=== PATIENT | male | born 1970 | race Caucasian/White ===

== ENCOUNTER 2018-06-01 07:09 | Emergency (ER) | payer OTHER ==
[~2018-06-01] VITALS: Ht 188 cm; Wt 90.7 kg
[~2018-06-01 07:09] MED LIST: AMOX500 PO; CYCL10 PO; HYDACE5 PO; IBUP600 PO; LORA1 PO; NEOCOLOTSU OT; Norco 5-325 Ta1 EACH PO; OXYACE7.5T PO; RXLORA1 PO; RXOXYACE PO
[2018-06-01] MEDS ORDERED: IBUP400 PO (07:59)
== END 2018-06-01 08:59 | disposition home or self-care (01) ==
LOC: ER 07:09
DX: S19.9XXA Unspecified injury of neck, initial encounter (principal); M79.89 Other specified soft tissue disorders; F17.200 Nicotine dependence, unspecified, uncomplicated; Y04.2XXA Assault by strike against or bumped into by another person, initial encounter
CPT/HCPCS: 29125; 73110; 73130; 99283-25

== ENCOUNTER 2019-11-06 00:51 | Emergency (ER) | payer OTHER ==
[~2019-11-06] VITALS: Ht 188 cm; Wt 90.7 kg
[~2019-11-06 00:51] MED LIST changes: +IBUP400 PO
[2019-11-06 03:04] LABS: Source, Urine Clean Catch
[2019-11-06 03:06] LABS: Bilirubin, Urine Neg (Neg); Blood, Urine 5+ (Neg); Glucose Qualitative, Urine Neg (Neg); Ketones, Urine Neg (Neg); Leukocyte Esterase, Urine 1+ (Neg); Nitrite, Urine Neg (Neg); Protein, Urine Neg (Neg); Specific Gravity, Urine 1.025 (1.003-1.022); Urobilinogen, Urine 1+ (Normal)
[2019-11-06 03:20] LABS: Appearance, Urine Hazy (Clear); Color, Urine Yellow (P-Yellow)
[2019-11-06 03:21] LABS: Amorphous Light (0-Heavy); Bacteria Few /hpf; Calcium Oxalate Crystals Mod /hpf; Mucus Light (0-Heavy); Red Blood Cells, Urine 25-50 /hpf (0-2); Squamous Epithelial Cells Few /hpf (Few); White Blood Cells, Urine 0-2 /hpf (0-5)
== END 2019-11-06 02:37 | disposition left against medical advice (07) ==
LOC: ER 00:51
PROVIDERS: Emergency Medicine
DX: Z53.21 Procedure and treatment not carried out due to patient leaving prior to being seen by health care provider (principal)
CPT/HCPCS: 81001; 87086

== ENCOUNTER 2022-01-27 01:39 | Observation (INO) | payer MEDICARE, OTHER ==
[~2022-01-27] VITALS: Ht 188 cm; Wt 102.5 kg
[2022-01-27 02:41] LABS: BASOPHILS ABSOLUTE AUTO 0.04 K/mm3 (0.00-0.23); BASOPHILS PERCENT AUTO 0 % (0-2); EOSINOPHILS ABSOLUTE AUTO 0.19 K/mm3 (0.00-0.68); EOSINOPHILS PERCENT AUTO 2 % (0-6); Hematocrit 43.2 % (37.0-53.0); Hemoglobin 14.5 g/dL (13.5-17.5); IMMATURE GRAN ABSOLUTE AUTO 0.03 K/mm3 (0.00-0.10); IMMATURE GRAN PERCENT AUTO 0 % (0-1); LYMPHOCYTES ABSOLUTE AUTO 2.19 K/mm3 (0.84-5.20); LYMPHOCYTES PERCENT AUTO 18 % (21-46); MONOCYTES ABSOLUTE AUTO 1.12 K/mm3 (0.16-1.47); MONOCYTES PERCENT AUTO 9 % (4-13); Mean Corpuscular HGB 28.9 pg (26.0-34.0); Mean Corpuscular HGB Conc 33.6 g/dL (31.5-36.5); Mean Corpuscular Volume 86 fL (80-100); Mean Platelet Volume 10.7 fL (9.1-12.4); NEUTROPHILS ABSOLUTE AUTO 8.97 K/mm3 (1.96-9.15); NEUTROPHILS PERCENT AUTO 72 % (41-73); Platelet Count 204 K/mm3 (150-400); RDW Coefficient Variation 13.6 % (11.7-14.2); RDW Standard Deviation 42.7 fL (35.1-46.3); Red Blood Cell Count 5.02 M/mm3 (4.30-5.90); White Blood Cell Count 12.54 K/mm3 (4.00-11.30)
[2022-01-27 02:58] LABS: Alanine Aminotransfer (ALT/SGP 37 U/L (12-78); Albumin, Blood 4.2 g/dL (3.4-5.0); Albumin/Globulin Ratio 1.2 (0.8-1.8); Alk Phos 42 U/L (50-136); Anion Gap 8 mmol/L (6-16); Aspartate Aminotrans (AST/SGOT 18 U/L (12-37); Bilirubin, Total 0.6 mg/dL (0.1-1.0); Blood Urea Nitrogen 18 mg/dL (8-24); Bun/Creatinine Ratio 21.1 (12.0-20.0); CO2, Blood 26 mmol/L (21-32); Calcium, Blood 9.1 mg/dL (8.5-10.1); Chloride, Blood 104 mmol/L (98-108); Creatinine, Blood 0.85 mg/dL (0.60-1.20); Globulin, Blood 3.5 g/dL (2.2-4.0); Glomerular Filtration Rate >60 (60-); Glucose, Blood 127 mg/dL (70-99); Potassium, Blood 3.9 mmol/L (3.5-5.5); Sodium, Blood 138 mmol/L (136-145); Total Protein, Blood 7.7 g/dL (6.4-8.2)
[2022-01-27] MEDS ORDERED: BLOOD PRESSURE (12:57)
--- NOTE | 2022-01-27 18:16 | NUR ---
SHIFT SUMMARY PT HAS DONE WELL POST OP. SINCE ARRIVING TO UNIT, ADVANCED FROM CLEAR LQ's TO REG DIET. UP TO BATHROOM TO VOID. EATING & DRINKING WELL SO SL. C/O PAIN TO UMBILICUS; MEDICATED w/ NORCO. LAP SITES WNL.
--- NOTE | 2022-01-28 04:20 | NUR ---
SHIFT SUMMARY NO ACUTE CHANGES THIS SHIFT. LAP SITES TO ABD X4 REMAIN CDI. PT TAKING 1 NORCO FOR PAIN PRN. REPORTS SOME FLATUS. BO REG DIET. ENCOURAGING AMBULATION AND DEEP BREATHING. INDEP IN ROOM. USES CALL LIGHT APPROPRIATELY. PT ANTICIPATING DISCHARGING HOME TODAY.
[2022-01-28] MEDS ORDERED: HYDR1TAB94 PO (08:02)
--- NOTE | 2022-01-28 10:00 | NUR ---
DISCHARGE PAIN CONTROLLED BUT C/O GAS PAINS. EATING, DRINKING, & VOIDING WELL. PASSING GAS. AMBULATES EASILY. SCRIPT GIVEN TO SPOUSE. ESCORTED OUT VIA W/C.
== END 2022-01-28 10:04 | disposition home or self-care (01) ==
LOC: ER 01:39 → SURS 01:40
PROVIDERS: ADMIT Emergency Medicine
DX: K80.12 Calculus of gallbladder with acute and chronic cholecystitis without obstruction (principal); I10 Essential (primary) hypertension; F17.200 Nicotine dependence, unspecified, uncomplicated
CPT/HCPCS: 36415; 76705; 80053; 83690; 85025; 88304; 93005; 93010; 96365; 96375; 99285-25; A9270; G0378; J1100; J1170; J1885; J2250; J2405; J2543; J2704; J3010; J7030; J7120

== ENCOUNTER → 2022-05-23 | Outpatient (CLI) | payer MEDICARE, OTHER ==
[~2022-05-23] MED LIST changes: +BLOOD PRESSURE; +HYDR1TAB94 PO
== END ==
LOC: LAB 12:12 → LAB SHORT 12:12
DX: L02.91 Cutaneous abscess, unspecified (principal)
CPT/HCPCS: 87070; 87075; 87077; 87147; 87186; 87205